=== PATIENT | female | born 2000 | race Caucasian/White ===

== ENCOUNTER 2021-09-17 21:48 | Emergency (ER) | payer SELFPAY ==
[~2021-09-17] VITALS: Ht 162.6 cm; Wt 77.3 kg
[2021-09-17 22:53] VITALS: TEMP 98.8
[2021-09-18 00:30] VITALS: BP 125/75; PULSE 95
[2021-09-18] MEDS ORDERED: CEPHALEXIN500 M1 PO (03:06)
[2021-09-18] MEDS ORDERED: NORCO 325 MG-51 TAB PO (03:06)
== END 2021-09-18 00:35 | disposition home or self-care (01) ==
LOC: COL.ER 21:48
DX: L02.415 Cutaneous abscess of right lower limb (principal)